=== PATIENT | female | born 1965 | race Caucasian/White ===

== ENCOUNTER 2020-06-08 16:12 | Inpatient (IN) | payer OTHER ==
[~2020-06-08] VITALS: Ht 165.1 cm; Wt 122.5 kg
[2020-06-08 16:49] VITALS: Ht 165.1 cm; Wt 122.5 kg
--- NOTE | 2020-06-08 17:10 | NUR ---
ALEXANDRA AT BEDSIDE FOR MSE.
[2020-06-08 17:35] LABS: BASOPHIL % 0.3 % (0-2); PLATELET COUNT 298 x10^3mcL (130-400); RED CELL DISTRIBUTION WIDTH 13.4 % (11.5-14.5)
[2020-06-08 18:02] LABS: ALKALINE PHOSPHATASE 133 U/L (46-116); ALT/SGPT 19 U/L (14-59); AST/SGOT 13 U/L (15-37); BILIRUBIN TOTAL 0.3 mg/dL (0.20-1.00); CALCIUM 9.2 mg/dL (8.5-10.1); CARBON DIOXIDE 32.8 mmol/L (21-32); CHLORIDE SERUM 101 mmol/L (98-107); CREATININE SERUM 0.9 mg/dL (0.6-1.0); GFR1 > 60 mL/min; GLUCOSE SERUM 221 mg/dL (74-106); LIPASE 58 IU/L (73-393); POTASSIUM SERUM 3.9 mmol/L (3.5-5.1); SODIUM SERUM 139 mmol/L (136-145); TOTAL PROTEIN, SERUM 8.1 g/dL (6.4-8.2)
[2020-06-08 18:06] LABS: ALBUMIN 3.1 g/dL (3.4-5.0)
--- NOTE | 2020-06-08 19:16 | NUR ---
REPORT GIVEN TO CARIN HERMAN TO ASSUME CARE OF THE PT.
[2020-06-08 20:33] LABS: UA SPECIFIC GRAVITY >=1.030 (1.005-1.035); microscopic required? YES; urine erythrocyte NEGATIVE (NEGATIVE)
[2020-06-08 20:42] LABS: AMPHETAMINE QUAL UR NONE DETECTED (See below)
--- NOTE | 2020-06-08 20:44 | NUR ---
RECEIVED REPORT FROM BATSHEVA DEL ROSARIO. WAITING FOR PT TO ARRIVE TO UNIT.
--- NOTE | 2020-06-08 20:45 | NUR ---
REPORT CALLED TO FLOOR - GIVEN TO ROMAN DEL ROSARIO.
--- NOTE | 2020-06-08 21:43 | NUR ---
PERSONAL BELONGING SHEET SIGNED AND WITNESSED. PT HAS PURSE, CELL PHONE, TABLET, AND CLOTHES THAT SHE IT TAKING TO HER ADMISSION ROOM.
--- NOTE | 2020-06-08 22:25 | NUR ---
RECEIVED PT FROM ED VIA [facility] ACCOMPANIED BY RN. PT CAME IN FOR CHIEF COMPLAINT OF LLQ ABD PAIN AND DYSURIA. PT AMBULATED TO BED WITH STEADY GAIT WITH ASSISTANCE. PT IS AAOX4 AND DENIES ZIEGLER/DIZZINESS. PT ON TELE #30, NSR WITH HR 66. PT DENIES CP/PRESSURE. PT PULSES PALPABLE AND CAP REFILL <3 SEC. PT LUNG SOUNDS CTA ON RA. PT BREATHING E/U. PT DENIES SOB OR RESP DISTRESS. PT ABD SOFT/ROUND WITH ACTIVE BS X4. PT HAS TENDERNESS TO LLQ AND PAIN OF 5/10, BUT TOLERABLE AT THIS TIME. PT DENIES N/V/C/D. PT VOIDS FREELY WITH BRP. PT HAS GENERALIZED WEAKNESS AND IS AMBULATORY. PT SKIN INTACT. PT IV TO RFA 20G PATENT/INTACT. PER EMAR, NS INFUSION ADMINISTERED AT 100ML/HR. ORIENTED PT TO ROOM AND CALL LIGHT. CALL LIGHT WITHIN REACH. BED IN LOWEST POSITION. SIDE RAILS X2 UP. WILL CONTINUE TO MONITOR.
[2020-06-08 22:42] VITALS: BP 162/89
--- NOTE | 2020-06-08 22:50 | NUR ---
PER EMAR, SCHEDULED MEDS ADMINISTERED. PT RBS 171. PER [facility] [employer], 3 UNITS OF INSULIN WOULD BE ADMINSTERED. PT REFUSED TO HAVE INSULIN SQ COVERAGE AND COLACE PO MEDICATION.
--- NOTE | 2020-06-09 01:20 | NUR ---
PT C/O ITCHINESS AND BEING UNABLE TO SLEEP. MADE DR. ROCHE AWARE. ORDER FOR BENADRYL 25MG PO GIVEN. WILL CARRY OUT ORDER ONCE [facility] VERIFIES MEDICATION.
[2020-06-09 01:48] LABS: CHOLESTEROL/HDL RATIO 5.6
--- NOTE | 2020-06-09 04:07 | NUR ---
PT RESTING COMFORTABLY IN BED WITH EYES CLOSED, EASILY AROUSABLE. PT BREATHING E/U. PT DENIES ANY ACUTE DISTRESS AT THIS TIME. ALL NEEDS MET. CALL LIGHT WITHIN REACH. BED IN LOWEST POSITION. SIDE RAILS X2 UP. WILL CONTINUE TO MONITOR.
[2020-06-09 07:01] LABS: BASOPHIL % 0.4 % (0-2); PLATELET COUNT 273 x10^3mcL (130-400); RED CELL DISTRIBUTION WIDTH 13.1 % (11.5-14.5)
--- NOTE | 2020-06-09 07:19 | NUR ---
PT RESTED COMFORTABLY IN INTERVALS DURING THE NIGHT, EASILY AROUSABLE. NO ACUTE DISTRESS NOTED. PT COMPLIED WITH NURSING CARE DURING THE SHIFT. ALL QUESTIONS AND CONCERNS ANSWERED. COMFORT AND SAFETY MEASURES MAINTAINED. ALL NEEDS MET. CALL LIGHT WITHIN REACH. BED IN LOWEST POSITION. SIDE RAILS X2 UP. ENDORSED CARE TO SOTERO DEL ROSARIO.
[2020-06-09 08:24] LABS: CALCIUM 8.7 mg/dL (8.5-10.1); CARBON DIOXIDE 29.7 mmol/L (21-32); CHLORIDE SERUM 105 mmol/L (98-107); CREATININE SERUM 0.7 mg/dL (0.6-1.0); GFR1 > 60 mL/min; GLUCOSE SERUM 214 mg/dL (74-106); PHOSPHOROUS 3.3 mg/dL (2.5-4.9); POTASSIUM SERUM 3.6 mmol/L (3.5-5.1); SODIUM SERUM 141 mmol/L (136-145)
[2020-06-09 08:55] VITALS: BP 160/82
--- NOTE | 2020-06-09 11:50 | NUR ---
PATENT IS A 54YEAR OLD FEMALE THAT WAS ADMITTED FOR ABDOMINAL PAIN SHOWING FLUID COLLECTION. SHE HAS BEEN NPO SINCE 0000. ALERT AND ORIENTED REFUSED COLACE THIS AM, STATING SHE WENT TO THE BATHROOM YESTERDAY. CT GUIDED ABCESS DRAINAGE WILL BE DONE TODAY RADIOLOGIST WILL GET CONSENT. PATIENT HAS BEEN INFORMED. BP 150'S THIS AM SCHEUDLED LISINOPRIL GIVEN.
[2020-06-09 12:49] VITALS: BP 167/83
--- NOTE | 2020-06-09 14:51 | NUR ---
DR Mulu RAND SPOKE WITH DR Sanjuana PEACOCK REGARDING THE ORDER FOR ABSCESS DRAINAGE. FLUID POCKET IN DIFFICULT PLACE TO ACCESS, DR Sanjuana PEACOCK WILL RESCAN TOMORROW AM AND ATTEMPT IF POINT OF ACCESS CAN BE IDENTIFIED. NOTIFIED PATIENT'S NURSE KELLY AND CT STAFF.
[2020-06-09 17:20] VITALS: BP 144/74
--- NOTE | 2020-06-09 19:20 | NUR ---
RECEIVED PT IN BED AWAKE, ALERT,ORIENTED X4. NO SOB ON ROOM AIR. BOWEL SOUNDS ACTIVE. ABDOMEN IS OBESE AND SOFT. PT HAS NO C/O PAIN AT THIS TIME. W/ IVF NS AT 100 CC/HR VIA RTFA. CALL LIGHT W/IN REACH.
[2020-06-09 21:42] VITALS: BP 143/64
--- NOTE | 2020-06-09 21:54 | NUR ---
PT MEDICATED W/ NORCO 7.5/325 MG PO FOR C/O LOWER ABDL PAIN 04/09.
--- NOTE | 2020-06-09 22:42 | NUR ---
PT C/O CHEST TIGHTNESS. PT FELLING FRUSTRATED AND STATED " SERVICE IN THIS HOSPITAL IS VERY SLOW. THEY CANNOT EVEN FIGURE OUT WHAT'S WRONG. I WANNA GO TO ANOTHER HOSPITAL. " ADVISED PT THAT THE RESIDENT WILL BE NOTIFIED REGARDING HER C/O CHEST PAIN.
--- NOTE | 2020-06-09 22:44 | NUR ---
INFORMED DR. ROCHE THAT PT IS C/O CHEST TIGHTNESS. PER DR. ROCHE HE WILL SEE PT.
[2020-06-09 22:45] VITALS: BP 171/75
--- NOTE | 2020-06-09 22:50 | NUR ---
DR. ROCHE IN PT'S ROOM AND TALKING TO PT. PT TEARFUL WHILE TALKING TO THE DOCTOR.
--- NOTE | 2020-06-09 23:15 | NUR ---
CALLED OUTSIDE PHARMACY TO VERIFY ORDERED MEDS.
--- NOTE | 2020-06-09 23:39 | NUR ---
PT MEDICATED W/ XANAX 0.25 MG PO FOR ANXIETY.
--- NOTE | 2020-06-09 23:44 | NUR ---
PT WAS INFORMED BY DR. ROCHE REGARDING RESULT OF EKG.
[2020-06-09 23:51] VITALS: BP 163/72
--- NOTE | 2020-06-09 23:54 | NUR ---
CALLED DR. ROCHE BUT DR. JAVIER ANSWERED. DR. JAVIER TOOK MESSAGE. REPORTED LATEST BP OF 163/72 HR=73.
[2020-06-10] VITALS (8 sets, daily range): BP systolic 116–166; BP diastolic 43–83
--- NOTE | 2020-06-10 01:53 | NUR ---
LOPRESSOR ORDER JUST VERIFIED BY PHARMACIST AT THIS TIME (CALLED MADE TO PHARMACY).
--- NOTE | 2020-06-10 02:35 | NUR ---
INFORMED DR. ROCHE REGARDING RESULT OF TROPONIN=<0.02 .
--- NOTE | 2020-06-10 05:17 | NUR ---
PT PT WAS ABLE TO SLEEP AFTER TAKING XANAX. SHE WAS MEDICATED FOR PAIN X1. NO FURTHER C/O CHEST TIGHTNESS. SHE AMBULATES W/ NO DIFFICULTY. PT KEPT NPO FOR PROCEDURE. IVF NS INFUSING AT 100 CC/HR VIA RTFA. ALL NEEDS ATTENDED TO.
[2020-06-10 06:58] LABS: BASOPHIL % 0.3 % (0-2); PLATELET COUNT 285 x10^3mcL (130-400); RED CELL DISTRIBUTION WIDTH 13.3 % (11.5-14.5)
[2020-06-10 07:19] LABS: CALCIUM 8.4 mg/dL (8.5-10.1); CHLORIDE SERUM 104 mmol/L (98-107); CREATININE SERUM 0.7 mg/dL (0.6-1.0); GFR1 > 60 mL/min; GLUCOSE SERUM 143 mg/dL (74-106); MAGNESIUM 1.7 mg/dL (1.8-2.4); PHOSPHOROUS 3.8 mg/dL (2.5-4.9); POTASSIUM SERUM 3.9 mmol/L (3.5-5.1); SODIUM SERUM 140 mmol/L (136-145)
--- NOTE | 2020-06-10 07:30 | NUR ---
PATIENT IS A&OX4, FOLLOWS COMMANDS AND COOPERATES WELL. TELE #30, NSR, DENIES CHEST PAIN. PERIPHERAL PULSES PALPABLE W/ NO SIGNS OF EDEMA. LUNG SOUNDS CTA BILATERALLY, ON RA, O2 SAT 98%, DENIES SOB. NORMAOCTIVE BSX4, ABD SOFT AND FLAT, DENIES ABD PAIN. AMBULATORY. SKIN IS CDI. DENEIS ANY PAIN OR DISCOMFORT AT THIS TIME. IV SITE IS CDI. WILL CONTINUE TO MONITOR PATIENT.
--- NOTE | 2020-06-10 08:30 | NUR ---
PATIENT WAS PICKED UP BY CT STAFF FOR CT GUIDED ABCESS DRAIN. ALL QUESTIONS AND CONCERNS HAVE BEEN ADDRESSED. WILL AWAIT FOR PATIENT'S RETURN.
--- NOTE | 2020-06-10 11:20 | NUR ---
UPON ASSESSMENT, PATIENT HAS A PIGTAIL CATHETER WITH ACCORDIAN DRAIN DRAINING MINIMAL SEROUS SANGUINEOUS DRAINAGE. CATHETER IS LCOATED IN THE LOWER LEFT QUADRANT OF ABD. WILL CONTINUE TO MONITOR PATIENT'S DRAINAGE OUTPUT.
--- NOTE | 2020-06-10 11:21 | NUR ---
PATIENT RETURNED FROM CT PROCEDURE. PATIENT DOES NOT APPEAR TO BE IN ANY PAIN OR DISCOMFORT AT THIS TIME. VSS. WILL CONTINUE TO MONITOR PATIENT.
--- NOTE | 2020-06-10 12:04 | NUR ---
PATIENT HAS REQUESTED TO HAVE A DIET ORDER SINCE SHE HAS FINISHED HER PROCEDURE. ASKED DR. WEINBERG IF A DIET ORDER CAN BE PLACED. DR. WEINBERG ORDERED A [facility] DIET. NO FURTHER ORDERS AT THIS TIME.
--- NOTE | 2020-06-10 15:23 | NUR ---
IRRIGATED DRAING TUBING WITH [address] PEACOCK. PATIENT TOLERATED PROCEDURE WELL. WILL CONTINUE TO MONITOR PATIENT.
--- NOTE | 2020-06-10 18:32 | NUR ---
PATIENT'S ACCORDIAN DRAIN DRAINGED OUT 30 ML OF SEROUS SANGUINEOUS DRAINAGE. PATIENT STATES INCREASE IN URINARY FREQUENCY. PLACED BEDSIDE COMMODE BY BEDSIDE IN ORDER TO ALLOW PATIENT EASE TO VOID. PATIENT DOES NOT STATE ANY PAIN OR DISCOMFORT AT THIS TIME. WILL CONTINUE TO MONITOR.
--- NOTE | 2020-06-10 21:35 | NUR ---
PIGTAIL CATH IRRIGATED W/ 10 ML NS. TUBE FLUSHED WELL. SANGUINOUS DRAINAGE IN BAG NOTED.
--- NOTE | 2020-06-11 03:48 | NUR ---
PT C/O HEADACHE 04/09. TYLENOL 650 MG PO GIVEN.
[2020-06-11 05:58] VITALS: BP 108/49
--- NOTE | 2020-06-11 06:19 | NUR ---
PT SLEPT IN LONG INTERVALS. SHE WAS MEDICATED FOR HEADACHE X1. PT SHE FEELS SORE ON THE PIGTAIL CATH SITE BUT TOLERABLE. OBTAINED 35 CC SANGUINOUS DRAINAGE FROM PIGTAIL CATH (45 CC MINUS 10 CC NS IRRIGATION). NO BM NOTED. PT AFEBRILE THROUGHOUT SHIFT. IV SITE TO RTFA INTACT AND PATENT. ALL NEEDS ATTENDED TO.
[2020-06-11 07:08] LABS: BASOPHIL % 0.2 % (0-2); PLATELET COUNT 279 x10^3mcL (130-400); RED CELL DISTRIBUTION WIDTH 13.5 % (11.5-14.5)
[2020-06-11 07:22] LABS: CALCIUM 8.3 mg/dL (8.5-10.1); CARBON DIOXIDE 31.2 mmol/L (21-32); CHLORIDE SERUM 104 mmol/L (98-107); CREATININE SERUM 0.9 mg/dL (0.6-1.0); GFR1 > 60 mL/min; GLUCOSE SERUM 130 mg/dL (74-106); MAGNESIUM 1.7 mg/dL (1.8-2.4); PHOSPHOROUS 3.7 mg/dL (2.5-4.9); POTASSIUM SERUM 3.4 mmol/L (3.5-5.1); SODIUM SERUM 138 mmol/L (136-145)
--- NOTE | 2020-06-11 07:50 | NUR ---
SEEN IN BED AAOX4. NO RESP DISTRESS NOTED ON ROOM AIR. DENIES PAIN. S/P CT GUIDED PELVIC ABSCESS DRAIN 06/10/20, DRAIN SITE COVERED WITH DRSG CDI, NOTED PINKISH DRAIN IN COLOR TO PIGTAIL. ABD SOFT AND OBESE. STATED VOIDS FREELY. BSC. IVF NS TO RFA INFUSING AT 100ML/HR NO INFILTRATION NOTED. PLAN OF CARE DISCUSSED. CALL LIGHT PLACED WITHIN EASY REACH. SIDERAILS UP X2.
[2020-06-11 08:07] VITALS: BP 121/68
--- NOTE | 2020-06-11 08:50 | NUR ---
SEEN BY DOCTOR JULIO AT BEDSIDE. PATIENT MADE AWARE OF CURRENT CONDITION AND PLAN OF CARE.
[2020-06-11 12:07] VITALS: BP 139/69
[2020-06-11 18:00] VITALS: BP 152/70
--- NOTE | 2020-06-11 18:30 | NUR ---
NO ANY DISTRESS THROUGHOUT SHIFT. ALL SCHEDULED MEDS GIVEN. BRP. AFEBRILE. PIGTAIL DRAIN WITH 12ML PINKISH IN COLOR OUTPUT, DRSG CDI. MILD PAIN TO LLQ DRAIN SITE.
--- NOTE | 2020-06-11 19:15 | NUR ---
CARE ASSUMED FROM OUTGOING RN. PT RESTING COMFORTABLY IN BED. NO ACUTE DISTRESS NOTED. EVEN AND UNLABORED RESPIRATIONS ON RA. ON TELE# 30 READING SR 96 WITH OCC PVC. IV INTACT. C/O PAIN TO ABD, WILL MEDICATE PER EMAR. PIGTAIL DRAIN TO LLQ IN PLACE, DRAINING SEROSANGUINEOUS OUTPUT. DRESSING CDI. BED IN LOWEST POSITION. SIDE RAILS UPX2. CALL LIGHT WITIN REACH. WILL CONTINUE TO MONITOR.
[2020-06-11 20:00] VITALS: BP 155/77
[2020-06-11 21:49] VITALS: BP 131/74
--- NOTE | 2020-06-12 00:20 | NUR ---
PT RESTING COMFORTABLY IN BED. NO ACUTE DISTRESS NOTED. EVEN AND UNLABORED RESPIRATIONS ON RA. ON TELE# 30 READING SR 61. NO C/O PAIN OR SOB AT THIS TIME. PIGTAIL DRAINAGE CATH IN PLACE, MINIMAL SEROSANGUINEOUS OUTPUT NOTED. BED IN LOWEST POSITION. SIDE RAILS UPX2. CALL LIGHT WITHIN REACH. WILL CONTINUE TO MONITOR.
[2020-06-12 05:34] VITALS: BP 150/79
--- NOTE | 2020-06-12 06:23 | NUR ---
PT RESTED IN INTERVALS THROUGHOUT THE SHIFT. ALL NEEDS TENDED TO AND MET. EVEN AND UNLABORED RESPIRATIONS ON RA. ON TELE# 30 READING SR 78. NEW IV STARTED TO R HAND, PATENT AND INTACT. C/O ABD PAIN MEDICATED PER EMAR. PIGTAIL ACCORDIAN DRAIN FLUSHED WITH 10ML STERILE NS, 20ML SEROSANGUINEOUS OUTPUT EMPTIED, DRESSING CDI. BED IN LOWEST POSITION. SIDE RAILS UPX2. CALL LIGHT WITHIN REACH. WILL ENDORSE TO ONCOMING SHIFT.
[2020-06-12 07:14] LABS: BASOPHIL % 0.3 % (0-2); PLATELET COUNT 280 x10^3mcL (130-400); RED CELL DISTRIBUTION WIDTH 13.3 % (11.5-14.5)
[2020-06-12 07:24] LABS: CALCIUM 8.3 mg/dL (8.5-10.1); CARBON DIOXIDE 31.3 mmol/L (21-32); CHLORIDE SERUM 102 mmol/L (98-107); CREATININE SERUM 0.9 mg/dL (0.6-1.0); GFR1 > 60 mL/min; GLUCOSE SERUM 145 mg/dL (74-106); MAGNESIUM 1.8 mg/dL (1.8-2.4); POTASSIUM SERUM 3.3 mmol/L (3.5-5.1); SODIUM SERUM 138 mmol/L (136-145)
[2020-06-12 08:40] VITALS: BP 113/53
--- NOTE | 2020-06-12 08:40 | NUR ---
SEEN IN BED AAOX4. NO RESP DISTRESS NOTED. FINISHED 50% OF BREAKFAST. STATED HAD SMALL BM YESTERDAY. ABD SOFT AND ROUND. PIGTAIL DRAIN TO LLQ NOTED SMALL AMOUNT OF SEROSANGUNOUS IN COLOR. BRP. S/L TO RT HAND INTACT AND PATENT. CALL LIGHT PLACED WITHIN EASY REACH. SIDERAILS UP X2.
[2020-06-12 15:00] VITALS: BP 143/71
--- NOTE | 2020-06-12 18:46 | NUR ---
NO ANY DISTRESS THROUGHOUT SHIFT. VSS. TYLENOL 650MG PO GIVEN X1. PIGTAIL TO LLQ WITH DRSG CDI, SMALL AMOUNT DRAINAGE SEROSANGUOUS NOTED TO BAG. ALL SCHEDULED MEDS GIVEN. S/L TO RT HAND INTACT AND PATENT.
--- NOTE | 2020-06-12 19:20 | NUR ---
CARE ASSUMED FROM OUTGOING RN. PT RESTING COMFORTABLY IN BED. NO ACUTE DISTRESS NOTED. EVEN AND UNLABORED RESPIRATIONS ON RA. ON TELE# 30 READING SR 83. IVL INTACT. C/O PAIN TO ABD, WILL MEDICATE PER EMAR. LLQ PIGTAIL ACCORDIAN DRAINAGE CATHETER IN PLACE, MINIMAL SEROSANGUINEOUS OUTPUT NOTED, DRESSING CDI. BED IN LOWEST POSITION. SIDE RAILS UPX2. CALL LIGHT WITHIN REACH. WILL CONTINUE TO MONITOR.
[2020-06-12 19:50] VITALS: BP 115/62
--- NOTE | 2020-06-12 21:40 | NUR ---
ABD PAIN MEDICATED PER EMAR, APRESOLINE PO HELD PER PARAMETERS, BP:141/71. LLQ PIGTAIL ACCORDIAN DRAINAGE CATHETER FLUSHED WITH STERILE 10ML NS, NO RESISTANCE NOTED, SEROSANGUINEOUS OUTPUT NOTED. WILL CONTINUE TO MONITOR AND REASSESS FOR PAIN.
--- NOTE | 2020-06-12 22:00 | NUR ---
DR. PHILLIPS AT BEDSIDE, WILL CONTINUE TO MONITOR.
--- NOTE | 2020-06-13 | NUR ---
PT RESTING COMFORTABLY IN BED. NO ACUTE DISTRESS NOTED. EVEN AND UNLABORED RESPIRATIONS ON RA. ON TELE READING SR 66. C/O INSOMNIA MEDICATED PER EMAR. BED IN LOWEST POSITION. SIDE RAILS UPX2. CALL LIGHT WITHIN REACH. WILL CONTINUE TO MONITOR.
[2020-06-13 05:03] VITALS: BP 148/71
--- NOTE | 2020-06-13 06:34 | NUR ---
PT RESTED COMFORTABLY IN INTERVALS THROUGHOUT THE SHIFT. ALL NEEDS TENDED TO AND MET. ALL SCHEDULED MEDICATIONS GIVEN. EVEN AND UNLABORED RESPIRATIONS ON RA. ON TELE READING SR. C/O ABD PAIN MEDICATED PER EMAR. 10ML SEROSANGUINEOUS OUTPUT EMPTIED FROM PIGTAIL ACCORDIAN DRAINAGE CATHETER, DRESSING CDI. BED IN LOWEST POSITION. SIDE RAILS UPX2. CALL LIGHT WITHIN REACH. WILL ENDORSE TO ONCOMING SHIFT.
[2020-06-13 08:03] LABS: BASOPHIL % 0.3 % (0-2); PLATELET COUNT 328 x10^3mcL (130-400); RED CELL DISTRIBUTION WIDTH 13.3 % (11.5-14.5)
[2020-06-13 08:10] LABS: CALCIUM 8.5 mg/dL (8.5-10.1); CHLORIDE SERUM 103 mmol/L (98-107); CREATININE SERUM 0.8 mg/dL (0.6-1.0); GFR1 > 60 mL/min; GLUCOSE SERUM 104 mg/dL (74-106); MAGNESIUM 2.2 mg/dL (1.8-2.4); PHOSPHOROUS 3.8 mg/dL (2.5-4.9); SODIUM SERUM 139 mmol/L (136-145)
[2020-06-13 08:12] LABS: POTASSIUM SERUM 3.9 mmol/L (3.5-5.1)
--- NOTE | 2020-06-13 08:30 | NUR ---
RECEIVED PT FROM NIGHT NURSE. SHE COMPLAINED OF 7/10 ABD PAIN AND WAS MEDICATED WITH TYLENOL ORDERED PRN. AAOX4. WOUND DRESSING FROM DRAINAGE PROCEDURE CDI. DRAINING SMALL AMOUNT OF SEROSANGUINOUS DRAINAGE. BREATHING NORMAL AND UNLABORED. NSR ON THE MONITOR. WILL CONTINUE TO MONITOR.
--- NOTE | 2020-06-13 09:37 | NUR ---
PIGTAIL DRAIN IRRIGATED WITH 10 ML NS FLUSH.
--- NOTE | 2020-06-13 14:19 | NUR ---
Initial Nutrition Assessment: ElliA PEPE MACHUCA 54F MR Dx: intractable abdominal pain, leukocytosis, fluid collection PMHx: DM, HTN PSHx: gastric sleeve Labs: (06/13) POC BG 171H, WBC 13.8H , H/H 10.8/33L (06/08) A1C 9.6H Meds: Apresoline, Aspirin, Colace, D50%, Lipitor, Lopressor, Xanax, Zestril/Prinivil, Zosyn PRN Meds: Ambien, Benadryl, Humulin, Nitrostat, [place], Toradol, Tylenol, Zofran Diet: CCHO 60 PO intake since admission: 40-100% x 3 meals, average PO intake 63% Ht: 165cm/5'5 Wt: 122.47kg/270# BMI:44.9 Bed scale: 291# IBW: 57kg/125# %IBW: 216% ABW: 73kg/161# UBW: pt is unsure Age: 54 Food Allergies: NKFA Skin condition: warm, dry, intact Bruno: 20 Edema: none noted Last BM: 06/12 Per H&P (06/08): 54F w/ PMHx of DM, HTN, gastric sleeve surgery, presents to ED for complains of abdominal pain. She locates the pain at LLQ, rates in 10/10, non-radiating and sharp. The pain stared 10 days ago and have been progressively getting worse. Last week she had a web appointment w/ a physician who recommended urinalysis, which she got and then was stared on antibiotics for possibly UTI. Pt states that she has burning sensation on urination and has been in a new relationship. She has not noticed any discharge or blood in her urine. She has a history of diabetes and HTN, but stop taking medication post gastric sleeve in 2016. She denies any other symptoms, chest pain, n/v/c/d or SOB. Dx at admission: sepsis poss 2/2 UTI vs GI abscess, uncontrolled HTN, DMOCC, morbid obesity class 3 RD Note (06/13): Pt was sitting in bed during assessment today. Pt mentioned that she has been constipated since admission and started having diarrhea yesterday after given a stool softener. She mentioned that it took the stool softener 4 days to take effect. She is not allergic to any foods and has no issues chewing or swallowing the foods. She mentioned that her appetite fluctuates; she feels hungry but once the food arrives, she no longer feels hunger. After her gastric sleeve surgery, she had lost 100 pounds a year and a half ago. After her surgery, she is taking multivitamins, calcium, turmeric, zinc 2x/day, probiotics, and vitamin B-12. She doesn't follow a strict diet at home but she tries to not eat too much fried foods. She does not like to eat rice but loves to eat bread. Pt mentioned that she prefers whole grain over white breads. When it gets hot, she exercises by swimming in her pool. Based on her average PO intake of 63%, she consumes 1077 kcal and 65 g protein. This meets 49% of her estimated energy needs and 60% of her protein needs. Problem with: N/V/D/C: per pt, no n/v, was constipated and then had diarrhea yesterday after given stool softener Problems with: Chewing: Swallowing: none per pt Current appetite: per pt, feels hungry but not anymore once food arrives Recent wt change: lost 100# 1.5 years ago %wt change: 27% weight loss in 1.5 yr Vitamin/Supplement use: per pt, takes multivitamin, calcium, turmeric, zinc 2x/day, probiotic, B-12 Special diet at home: per pt, does not eat too much fried foods, rice, but likes to eat bread Physical activity: pt swims in her pool when it is hot Nutrition education given (specify specific nutrition education and handout given): Written education on bariatric surgery vitamins and DM was shared with patient. Information on vitamins and mineral supplements to replenish after a bariatric surgery was recommended to the patient. Servings of carbohydrate and whole grain choices was shared with patient. Food-drug interactions? Education given? n/a Estimated Nutritional Needs Based on adjusted body weight (73kg) Energy: 2190 - 2555 kcal/day (30-35 kcal/kg for sepsis) Protein: 109 - 146 g/day (1.5-2 g/kg for sepsis) Fluid: 2190 - 2555 mL/day (1 mL/kcal) Nutrition Diagnosis: 1. Increased energy and protein needs r/t hypermetabolic state a/e/b pt diagnosed w/ sepsis. 2. Impaired nutrient utilization r/t endocrine dysfunction a/e/b pt's A1C 9.6H (06/08) and POC BG 171H (06/13). 3. Increased vitamins and minerals needs r/t bariatric surgery a/e/b/ pt's PSHx of gastric sleeve procedure 4 years ago. Intervention 1. Recommend continue CCHO 60 diet as tolerated. 2. Recommend Glucerna BID for additional 440 kcal and 20 g protein. 3. Recommend MVI QD. Paged and left recommendations for for via the resident's call phone. Monitor/Evaluate Goal: PO intake at least 75% of estimated needs Monitor: PO intake, Labs, GI function, ONS intake F/U in 3-5 days as moderate risk (06/16-)
--- NOTE | 2020-06-13 15:36 | NUR ---
DIETITIAN CO-SIGN The Nutrition Notes documented by the Power Grader Operator have been reviewed. Reviewed/Co-Signed by: Javier Randolph Documentation Done by: Trena Ortiz
--- NOTE | 2020-06-13 19:17 | NUR ---
RECEIVED REPORT FROM KIARA DEL ROSARIO. WILL RESUME CARE.
--- NOTE | 2020-06-13 19:39 | NUR ---
PT'S PAIN TREATED Q6 HR WITH TYLENOL ORDERED PRN, THROUGHOUT SHIFT. PT SIGNED CONSENT FORM FOR MIDLINE CATHETER PLACEMENT. ACCESS NECESSARY FOR CT WITH CONTRAST FOR POSSIBLE ABSCESS DRAINAGE. ONLY MINIMAL SEROSANQUINOUS DRAINAGE IN POUCH. PT CURRENTLY RESTING COMFORTABLY WITH PAIN MANAGED WELL, REPORTED. ENDORSED TO NIGHT NURSE
--- NOTE | 2020-06-13 19:40 | NUR ---
RECEIVED PT AAOX4, SPEECH CLEAR. ON RA, BREATHING E/U. PT STATES 3/10 ABDOMINAL PAIN AT THIS TIME, WILL MEDICATE PER EMAR. S1S2 AUSCULTATED. PT STATES NO CHEST PAIN. NO EDEMA NOTED. PULSES PALPABLE. CAP REFILL <3 SEC. ABDOMEN OBESE, NONTENDER. BS ACTIVE X 4. LLQ PIGTAIL DRAIN IN PLACE WITH MINIMAL SEROUSSANGUINOUS FLUID NOTED. NO N/V. PT VOIDS FREELY. AMBULATORY. PT CALM RESTING IN BED AT THIS TIME. BED IN LOOW POSITION. CALL LIGHT WITHIN REACH. WILL CONTINUE TO MONITOR.
--- NOTE | 2020-06-13 21:17 | NUR ---
TYLENOL 650MG PO GIVEN FOR 4/10 ABDOMINAL PAIN. WILL CONTINUE TO MONITOR.
[2020-06-13 21:20] VITALS: BP 133/63
--- NOTE | 2020-06-13 21:50 | NUR ---
R WRIST 20G INSERTED FOR CT OF ABDOMEN AND PELVIS. IV FLUSHED WITH EASE AND WNL.
--- NOTE | 2020-06-13 22:10 | NUR ---
PT TAKEN OFF UNIT FOR CT OF ABDOMEN AND PELVIS WITH IV CONTRAST.
--- NOTE | 2020-06-13 22:31 | NUR ---
PT BACK FROM CT. NAD NOTED. PT TOLERATED WELL.
--- NOTE | 2020-06-13 23:30 | NUR ---
PT C/O INSOMNIA. GIVEN AMBIEN 5MG PO. WILL CONTINUE TO MONITOR.
[2020-06-14 05:02] VITALS: BP 144/61
[2020-06-14 06:54] LABS: CALCIUM 8.8 mg/dL (8.5-10.1); CARBON DIOXIDE 29.8 mmol/L (21-32); CHLORIDE SERUM 102 mmol/L (98-107); CREATININE SERUM 0.9 mg/dL (0.6-1.0); GFR1 > 60 mL/min; GLUCOSE SERUM 88 mg/dL (74-106); POTASSIUM SERUM 3.4 mmol/L (3.5-5.1); SODIUM SERUM 141 mmol/L (136-145)
--- NOTE | 2020-06-14 07:10 | NUR ---
RECIEVED PT RESTING IN BED WITH NO C/O PAIN OR DIOSTRESS. A/O X4 WITH NO ZIEGLER OR DIZZINESS. LUNGS CTAB WITH NO SOB. PIGTAIL DRAIN TO LLQ WITH DRESSING CDI. IV TO RH/RW BOTH CDI AND PATENT. SAFETY PRECAUTIONS IN PLACE, CALL LIGHT WITHIN REACH, WILL MONITOR.
[2020-06-14 07:29] LABS: BASOPHIL % 0.3 % (0-2); RED CELL DISTRIBUTION WIDTH 13.3 % (11.5-14.5)
[2020-06-14 08:22] LABS: PLATELET COUNT 424 x10^3mcL (130-400)
[2020-06-14 08:27] VITALS: BP 135/62
--- NOTE | 2020-06-14 08:38 | NUR ---
TYLEMOL GIVEN PER EMAR FOR C/O 04/09 ABD PAIN, WILL REASSESS.
--- NOTE | 2020-06-14 15:15 | NUR ---
TYLENOL GIVEN PER EMAR FOR C/O 5/10 GENERALIZED PAIN, WILL MONITOR.
--- NOTE | 2020-06-14 16:52 | NUR ---
DR NAVA MADE AWARE OF PELVIC RESULT ABSCESS E COLII POSITIVE. WILL CARRY OUT ANY NEW ORDERS.
[2020-06-14 17:15] VITALS: BP 128/67
--- NOTE | 2020-06-14 18:40 | NUR ---
PT RESTING IN BED WITH NO C/O PAIN OR DISTRESS. A/O X4 WITH NO ZIEGLER OR DIZZINESS. LUNGS CTAB WITH NO SOB. PIGTAIL DRAIN TO LLQ WITH DRESSING CDI. 10 ML DRAINED ALL SHIFT. IV TO RH/RW BOTH CDI AND PATENT. SAFETY PRECAUTIONS IN PLACE, CALL LIGHT WITHIN REACH, WILL ENDORSE TO NIGHT NURSE.
[2020-06-14 19:00] VITALS: BP 138/76
--- NOTE | 2020-06-14 19:20 | NUR ---
PATIENT RECIEVED IN BED, ALERT AND ORIENTED X4. PELVIC DRAIN TO LEFT LOWER QUANDRANT WITH 10CC IN BULB. SITE CLEAN AND DRY. ANTIBIOTIC THERAPY CONTINUED WITH SIDE EFFECTS. NOTED. IV INTACT TO RIGHT HAND AND WRIST. ASSISTED WITH ADL'S AND TRANSFERS. FALL AND SAFETY PRECAUTIONS MAINTAINED. AFEBRILE. NO ACUTE DISTRESS NOTED.
[2020-06-14 21:06] VITALS: BP 153/77
[2020-06-15] VITALS: BP 132/72
--- NOTE | 2020-06-15 | NUR ---
PATIENT SLEEPING DURING ROUNDING, EASILY AROUSED. NO COMPLAINT OFFERED. FALL AND SAFETY PRECAUTIONS MAINTAINED. RESPIRATIONS EVEN AND NONLABORED. NO ACUTE DISTRESS NOTED.
[2020-06-15 05:44] VITALS: BP 144/71
--- NOTE | 2020-06-15 06:22 | NUR ---
PATIENT SLEEPING DURING ROUNDING, EASILY AROUSED. VSS. CALL LIGHT WITHIN REACH. NO ACUTE DISTRESS NOTED.
[2020-06-15 07:20] LABS: BASOPHIL % 0.4 % (0-2); RED CELL DISTRIBUTION WIDTH 13.4 % (11.5-14.5)
[2020-06-15 07:39] LABS: CALCIUM 8.5 mg/dL (8.5-10.1); CARBON DIOXIDE 33.7 mmol/L (21-32); CHLORIDE SERUM 105 mmol/L (98-107); GFR1 > 60 mL/min; GLUCOSE SERUM 97 mg/dL (74-106); MAGNESIUM 2.1 mg/dL (1.8-2.4); PHOSPHOROUS 4.4 mg/dL (2.5-4.9); POTASSIUM SERUM 3.3 mmol/L (3.5-5.1); SODIUM SERUM 142 mmol/L (136-145)
--- NOTE | 2020-06-15 07:42 | NUR ---
RECIEVED REPORT FROM [facility] NURSE. PATIENT IS CURRENTLY AWAKE ALERT AND ORIENTED X 4. PATIENT HAS A LLQ DRAIN IN PLACE DRAINING SEROSANGANOUS FLUID. NO REPORT OF ABD PAIN AT THIS TIME. VITAL SIGNS STABLE. IV TO RIGHT HAND AND RIGHT WRIST CURRENTLY SALINE LOCKED. SAFETY PRECAUTIONSI N PLACE. CALL LIGHT WITHIN REACH. WILL CONTINUE TO PROVIDE CARE FOR PATIENT.
[2020-06-15 08:12] VITALS: BP 133/68
[2020-06-15 08:13] LABS: PLATELET COUNT 415 x10^3mcL (130-400)
[2020-06-15 12:55] VITALS: BP 139/74
[2020-06-15 16:43] VITALS: BP 153/79
--- NOTE | 2020-06-15 17:56 | NUR ---
PATIENT CURRENTLY AWAKE ALERT AND ORIENTED X 4. PATIENT ON STANDARD PRECAUTIONS. FLAGYL DISCONTINUED BY DR. PHILLIPS. POTASSIUM OF 3.3 REPLACED IN THE AM PER DR. NAVA ORDER. WBC COUNT TRENDING DOWN. DIET ADVANCED FROM CLEAR LIQUIDS TO FULL LIQUIDS. PATIENT REPORTED ABDOMINAL PAIN AND WAS GIVEN MEDICATION PER EMAR. LLQ PERCUTANEOUS ABSCESS DRAIN IN PLACE AND INTACT DRAINING TO GRAVITY. SEROSANGANOUES DRAINAGE. SAFETY PRECAUTIONS IN PLACE. CALL LIGHT WITHIN REACH. WILL ENDORSE ALL FURTHER CARE TO NOC NURSE.
--- NOTE | 2020-06-15 20:00 | NUR ---
PATIENT SLEEPING DURING ROUNDING EASILY AROUSED. FALL AND SAFETY PRECAUTIONS MAINTAINED. CALL LIGHT PLACED WITHIN REACH. RESPIRATIONS EVEN AND NONLABORED. NO ACUTE DISTRESS NOTED.
[2020-06-15 21:28] VITALS: BP 151/85
--- NOTE | 2020-06-16 04:23 | NUR ---
PATIENT SLEEPING DURING ROUNDING, EASILY AROUSED. FALL AND SAFETY PRECAUTIONS MAINTAINED. REPOSITIONED FOR NEEDED. RESPIRATIONS EVEN AND NONLABORED. VSS. NO ACUTE DISTRESS NOTED.
[2020-06-16 05:05] VITALS: BP 132/58
[2020-06-16 07:18] LABS: CALCIUM 8.5 mg/dL (8.5-10.1); CARBON DIOXIDE 33.6 mmol/L (21-32); CHLORIDE SERUM 103 mmol/L (98-107); CREATININE SERUM 0.9 mg/dL (0.6-1.0); GFR1 > 60 mL/min; GLUCOSE SERUM 96 mg/dL (74-106); PHOSPHOROUS 4.2 mg/dL (2.5-4.9); POTASSIUM SERUM 3.6 mmol/L (3.5-5.1); SODIUM SERUM 140 mmol/L (136-145)
[2020-06-16 08:12] LABS: BASOPHIL % 0.4 % (0-2); PLATELET COUNT 431 x10^3mcL (130-400); RED CELL DISTRIBUTION WIDTH 12.9 % (11.5-14.5)
[2020-06-16 08:51] VITALS: BP 102/46
--- NOTE | 2020-06-16 09:54 | NUR ---
PATIENT IS AOX4, RESPIRATIONS EVEN AND UNLABORED ON ROOM AIR. TOLERATING REGULAR DIET WELL WITH NO NAUSEA/VOMITING. REPORTS HAVING LOOSE STOOL. PAIN IS TOLERABLE AT THIS TIME, EDUCATION PROVIDED FOR MEDICATIONS AND PLAN OF CARE. ENCOURAGED AMBULATION AND INCENTIVE SPIROMETER. RLQ PIGTAIL DRAIN WITH SMALL AMOUNT OF SEROSANGUINOUS DRAINAGE. WILL CONTINUE TO MONITOR.
[2020-06-16 14:34] VITALS: BP 129/51
[2020-06-16 17:32] VITALS: BP 142/59
--- NOTE | 2020-06-16 18:55 | NUR ---
PATIENT TOLERATED ALL MEALS WELL. NO COMPLAINTS OF PAIN ALL DAY. LLQ PIGTAIL DRAIN WITH 25 CC SEROSANGUINOUS OUTPUT. PT REPORST HAVING A SMALL LOOSE BM TODAY. AMBULATED IN THE ROOM INDEPENDENTLY. ALL QUESTIONS ANSWERED. WILL ENDORSE TO NIGHT RN.
[2020-06-16 21:23] VITALS: BP 153/72
[2020-06-17 06:31] VITALS: BP 115/52
[2020-06-17 06:33] LABS: BASOPHIL % 0.4 % (0-2); RED CELL DISTRIBUTION WIDTH 12.9 % (11.5-14.5)
[2020-06-17 06:40] LABS: CALCIUM 8.7 mg/dL (8.5-10.1); CARBON DIOXIDE 30.9 mmol/L (21-32); CHLORIDE SERUM 104 mmol/L (98-107); GFR1 > 60 mL/min; GLUCOSE SERUM 100 mg/dL (74-106); MAGNESIUM 2.1 mg/dL (1.8-2.4); PHOSPHOROUS 4.2 mg/dL (2.5-4.9); POTASSIUM SERUM 4.3 mmol/L (3.5-5.1); SODIUM SERUM 141 mmol/L (136-145)
[2020-06-17 06:42] LABS: PLATELET COUNT 442 x10^3mcL (130-400)
--- NOTE | 2020-06-17 08:55 | NUR ---
PATIENT IS AOX4, RESPIRATIONS EVEN AND UNLABORED. REPORTS PAIN IN LLQ NEAR PIGTAIL DRAIN. SCANT SEROSANGUINOUS DRAINAGE FROM PIGTAIL DRAIN. REOPRTS HAVING REGULAR BOWEL MOVEMENTS. AMBULATING IN ROOM INDEPENDENTLY. UPDATED PATIENT ON PLAN OF CARE. WILL CONTINUE TO MONITOR.
[2020-06-17 08:56] VITALS: BP 128/52
[2020-06-17 15:18] VITALS: BP 130/72
--- NOTE | 2020-06-17 20:35 | NUR ---
RECEIVED REPORT FROM OUTGOING NURSE. PATIENT AWAKE,ALERT ,AND ORIENTED.SKIN WARM AND DRY TO TOUCH,NO RESPIRATORY DISTRESS NOTED.MILD ABD. PAIN 3/10 PROVIDED COMFORT MEASURE.AFEBRILE.
[2020-06-17 21:21] VITALS: BP 143/65
[2020-06-18 05:55] VITALS: BP 134/56
--- NOTE | 2020-06-18 07:30 | NUR ---
REPORT TAKEN FROM MANAGER MOTOR NURSE AT THE BEDSIDE, PATIENT RESTING AT THIS TIME, CHEST RISE AND FALL OBSERVED. WILL CONTINUE TO MONITOR.
[2020-06-18 07:32] LABS: CALCIUM 9.1 mg/dL (8.5-10.1); CARBON DIOXIDE 34.7 mmol/L (21-32); CHLORIDE SERUM 101 mmol/L (98-107); GFR1 > 60 mL/min; GLUCOSE SERUM 131 mg/dL (74-106); MAGNESIUM 2.1 mg/dL (1.8-2.4); PHOSPHOROUS 4.1 mg/dL (2.5-4.9); POTASSIUM SERUM 3.7 mmol/L (3.5-5.1); SODIUM SERUM 138 mmol/L (136-145)
[2020-06-18 07:44] LABS: BASOPHIL % 0.5 % (0-2)
[2020-06-18 07:45] LABS: PLATELET COUNT 414 x10^3mcL (130-400)
[2020-06-18 09:50] VITALS: BP 130/65
[2020-06-18] MEDS ORDERED: CIPRO500 MG PO (12:53)
[2020-06-18] MEDS ORDERED: FLAGYL500 MG PO (12:54)
[2020-06-18] MEDS ORDERED: METOPROLOL TART25 M1 PO (12:57)
[2020-06-18] MEDS ORDERED: ZES5 PO (12:57)
[2020-06-18] MEDS ORDERED: ECO81 PO (12:57)
[2020-06-18] MEDS ORDERED: LIPI20 PO (12:58)
[2020-06-18] MEDS ORDERED: FORTAMET500 M1 PO (12:59)
[2020-06-18] MEDS ORDERED: ANTIFUNGAL14 G1 TOP (13:03)
[2020-06-18 13:27] VITALS: BP 151/68
[2020-06-18 15:11] VITALS: BP 151/68
--- NOTE | 2020-06-18 15:57 | NUR ---
PATIENT SIGNED DISCHARGE PAPERWORK AT THE BEDSIDE, IV DC'D FROM LEFT WRIST, WOUND DRESSED BY PROVIDER AT THE BEDSIDE S/P SUTURE OF DRAIN INCISION. PATIENT TOLERATED WELL AND VERBALIZED UNDERSTADING OF FOLLOW UP CARE. WAITING FOR STEFANIE, ETA 1800
== END 2020-06-18 18:00 | disposition home or self-care (01) | DRG 872 ==
LOC: ED 16:12 → DU 19:16 → MU 06-13 09:43
PROVIDERS: Student in an Organized Health Care Education/Training Program; ADMIT Family Medicine; ATTEND Family Medicine
PROC: 0W9H3ZZ Drainage of Retroperitoneum, Percutaneous Approach (ICD-10-PCS; principal; 2020-06-09)
DX: A41.9 Sepsis, unspecified organism (principal); N39.0 Urinary tract infection, site not specified; Z68.41 Body mass index [BMI] 40.0-44.9, adult; L02.211 Cutaneous abscess of abdominal wall; I10 Essential (primary) hypertension; N73.9 Female pelvic inflammatory disease, unspecified; B96.20 Unspecified Escherichia coli [E. coli] as the cause of diseases classified elsewhere; E11.65 Type 2 diabetes mellitus with hyperglycemia; E66.01 Morbid (severe) obesity due to excess calories; Z71.3 Dietary counseling and surveillance; Z79.899 Other long term (current) drug therapy; Z90.49 Acquired absence of other specified parts of digestive tract
CPT/HCPCS: 49406; 82962; 87491; 87591; C1729; G0378; J0696; J1815; J1885; J1956; J2001; J2250; J2405; J2543; J3010; J3490; J7030; J7060; Q0163; Q9967